=== PATIENT | female | born 1935 | race Caucasian/White ===

== ENCOUNTER 2022-05-27 20:09 | Emergency (ER) | payer MEDICARE, OTHER | END 2022-05-27 20:55 | disposition home or self-care (01) | LOC: VM.ED 20:09 | DX: K46.9 Unspecified abdominal hernia without obstruction or gangrene (principal) | CPT/HCPCS: 99283 ==

== ENCOUNTER 2022-10-28 09:59 | Emergency (ER) | payer MEDICARE, OTHER ==
[2022-10-28] MEDS ORDERED: Albuterol/Ipratropium 3.0-0.5 MG/3 ML Neb Soln NEB ONE (10:32)
[2022-10-28] MEDS ORDERED: cefTRIAXone 1 GM, Lidocaine 1% 2.1 ML IM ONE ×2 (10:46)
[2022-10-28 10:47] LABS: ANION GAP 6.5 mmol/L (5-15); CHLORIDE,CL 103 mmol/L (98-107); ESTIMATED GFR 84 mL/min (>=60); SODIUM,NA 143 mmol/L (136-145)
[2022-10-28] MEDS ORDERED: methylPREDNISolone Sodium Succinate 125 MG/2 ML SDV IM ONE (10:52)
[2022-10-28 10:58] LABS: CORONAVIRUS COVID-19 NAA NEGATIVE (NEGATIVE); RESPIRATORY SYNCYTIAL VIR NAA NEGATIVE (NEGATIVE)
== END 2022-10-28 11:58 | disposition home or self-care (01) ==
LOC: VM.ED 09:59
DX: J44.1 Chronic obstructive pulmonary disease with (acute) exacerbation (principal); J32.9 Chronic sinusitis, unspecified; E78.00 Pure hypercholesterolemia, unspecified; I10 Essential (primary) hypertension; Z87.891 Personal history of nicotine dependence; Z79.899 Other long term (current) drug therapy; Z20.822 Contact with and (suspected) exposure to COVID-19
CPT/HCPCS: 0241U; 36415; 71046; 80053; 82550; 83605; 83615; 83880; 84145; 84484; 85025; 85379; 86140; 87040; 93005; 94640; 96372; 99285; J0696; J2930; 93010; 99284; J3490; J7620-GY